=== PATIENT | male | born 1995 | race Two or more races ===

== ENCOUNTER 2025-10-04 00:35 | Emergency (ER) | payer SELFPAY ==
[~2025-10-04] VITALS: Ht 180.3 cm; Wt 77.1 kg
[2025-10-04] MEDS ORDERED: ONDANSETRON HCL/PF 4 MG/2 ML VIAL ONE (00:39)
[2025-10-04] MEDS ORDERED: MORPHINE SULFATE INJ 4 MG/ML DISP.SYRIN ONE (00:40)
[2025-10-04 00:41] VITALS: BP 136/70; TEMP 98.4; O2SAT 97
[2025-10-04] MEDS: ONDANSETRON HCL/PF 4 MG/2 ML VIAL IV ONE (00:41)
[2025-10-04] MEDS: IV NS 0.9% 1,000 ML BAG IV ONE (00:41)
[2025-10-04] MEDS: MORPHINE SULFATE INJ 2 MG/ML DISP.SYRIN IV ONE (00:41)
[2025-10-04] MEDS: TDAP [DIPH/PERTUSSIS/TET] 0.5 ML VIAL IM ONE (01:09)
== END 2025-10-04 01:09 | disposition left against medical advice (07) ==
LOC: ER 00:40
DX: S82.892B Other fracture of left lower leg, initial encounter for open fracture type I or II (principal); Z53.29 Procedure and treatment not carried out because of patient's decision for other reasons; V89.2XXA Person injured in unspecified motor-vehicle accident, traffic, initial encounter; Y93.89 Activity, other specified; Y92.410 Unspecified street and highway as the place of occurrence of the external cause; Y99.9 Unspecified external cause status
CPT/HCPCS: 99284; 96374; 96361; 96375; J2270; J2405